=== PATIENT | female | born 1995 | race Caucasian/White ===

== ENCOUNTER 2020-10-18 16:25 | Emergency (ER) | payer OTHER ==
[2020-10-18 16:53] VITALS: BP 141/69
--- NOTE | 2020-10-18 17:40 | ER Document Report ---
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 She states it was an extractor knife that she cut herself on. She is not exactly sure what patient came from but they were doing a procedure with these tools. Her office staff sent her to the emergency department for further evaluation for possible blood-borne pathogen exposure. - ROS Systems Reviewed and Negative: Yes All other systems reviewed and negative - CONSTITUTIONAL Constitutional: DENIES: Fever, Chills - EENT EENT: DENIES: Sore Throat, Ear Pain, Congestion - NEURO Neurology: DENIES: Headache, Weakness - CARDIOVASCULAR Cardiovascular: DENIES: Chest pain - RESPIRATORY Respiratory: DENIES: Trouble Breathing, Coughing - GASTROINTESTINAL Gastrointestinal: DENIES: Abdominal Pain, Nausea, Patient vomiting, Diarrhea - MUSCULOSKELETAL Musculoskeletal: DENIES: Extremity pain, Back Pain - DERM Skin Color: Normal Skin Problems: Laceration Notes: see hpi Past Medical History - General Information source: Patient - Social History Smoking Status: Never Smoker Chew tobacco use (# tins/day): No Frequency of alcohol use: None Drug Abuse: None Family History: Reviewed & Not Pertinent Vertical Provider Document - CONSTITUTIONAL Agree With Documented VS: Yes Exam Limitations: No Limitations General Appearance: WD/WN, No Apparent Distress - HEENT HEENT: Atraumatic, Normocephalic, PERRLA - NECK Neck: Normal Inspection, Supple - RESPIRATORY Respiratory: Breath Sounds Normal, No Respiratory Distress. negative: Rales, Rhonchi, Wheezing - CARDIOVASCULAR Cardiovascular: Regular Rate, Regular Rhythm, No Murmur - GI/ABDOMEN Gastrointestinal: Abdomen Soft, Abdomen Non-Tender - MUSCULOSKELETAL/EXTREMETIES Musculoskeletal/Extremeties: MAEW, FROM, Non-Tender - NEURO Level of Consciousness: Awake, Alert, Appropriate Motor/Sensory: No Motor Deficit, No Sensory Deficit - DERM Integumentary: Warm, Dry, Laceration - there is small superficial laceration to the right thumb. It does not require repair. No evidence for tendon laceration. 5/5 strength against resistance in testing of the thumb in flexion and extention. Cap refill less than two seconds. Course - Re-evaluation Re-evalutation: Spoke several times with the senior environmental practice leader and the dentist from this patient's workplace. Apparently, per the dentist, they had a relationship with the lab where they could send a employee over when they had a blood-borne pathogen exposure. He is not completely sure of that relationship still exists. We had called the lab to see if they knew about order form like that and they did not. The dentist asked for the patient to follow-up in the office tomorrow so they can contact via company that does their Worker's Comp. and get her to the correct place for testing and so that they can also contact trace with the patient who they think may have been a part of the procedure that use the extractor knife. I discussed this with the patient and she feels comfortable with this. Have encouraged her to return if anything goes awry with the plan. She does not need repair on that thumb. She is up-to-date on her tetanus shot. We will discharge - Vital Signs Vital signs: Temp Pulse Resp BP Pulse Ox 99.0 F 94 18 141/69 H 98 10/18/20 16:51 10/18/20 16:51 10/18/20 16:51 10/18/20 16:51 10/18/20 16:51 Discharge - Discharge Clinical Impression: Finger laceration Qualifiers: Encounter type: initial encounter Finger: thumb Damage to nail status: without damage Foreign body presence: without foreign body Laterality: right Qualified Code(s): S61.011A - Laceration without foreign body of right thumb without damage to nail, initial encounter Condition: Stable Disposition: HOME, SELF-CARE Instructions: Laceration Care ([facility]) Additional Instructions: Follow-up with the dentist office tomorrow to find out the correct pathways for occupational health for further testing for blood-borne pathogen. Return if you have any worsening symptoms such as redness, purulent drainage, fevers.
== END 2020-10-18 18:04 | disposition home or self-care (01) ==
LOC: ER 16:25
DX: S61.011A Laceration without foreign body of right thumb without damage to nail, initial encounter (principal); W26.8XXA Contact with other sharp object(s), not elsewhere classified, initial encounter; Y93.89 Activity, other specified; Y92.531 Health care provider office as the place of occurrence of the external cause; Y99.0 Civilian activity done for income or pay; Z77.21 Contact with and (suspected) exposure to potentially hazardous body fluids
CPT/HCPCS: 99282